=== PATIENT | male | born 2005 | race Caucasian/White ===

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

== ENCOUNTER 2024-07-08 15:40 | Emergency (ER) | payer OTHER, MEDICAID ==
[~2024-07-08] VITALS: Ht 175.3 cm; Wt 64.5 kg
[2024-07-08 15:59] VITALS: BP 119/57; PULSE 83; O2SAT 98
[2024-07-08 16:36] VITALS: RESP 16
[2024-07-08] MEDS: ondansetron 4mg rapidly disintigrating tab PO ONE (16:36)
[2024-07-08] MEDS: naproxen 500mg tablet PO ONE (16:36)
[2024-07-08] MEDS: HYDROcodone/acetaminophen 5mg/325mg tablet PO ONE (16:36)
[2024-07-08 17:10] VITALS: TEMP 97.8
== END 2024-07-08 17:12 | disposition home or self-care (01) ==
LOC: ER 15:41
DX: M79.672 Pain in left foot (principal)
CPT/HCPCS: 73630; 99284; L3260; A6449